=== PATIENT | male | born 1980 | race Caucasian/White ===

== ENCOUNTER 2017-04-27 07:28 | Emergency (ER) | payer BC ==
--- NOTE | 2017-04-27 08:32 | ED ---
General Adult HPI - General Chief complaint: Headache Stated complaint: Headache Time Seen by Provider: 04/27/17 08:15 Source: patient, RN notes reviewed Mode of arrival: ambulatory Limitations: no limitations - History of Present Illness Initial comments: Patient's a 37-year-old male who presents emergency room today with a chief complaint of a headache over the last 2-3 days. He does admit to a sharp type pain in the back of his head. He states he noticed it first when he was driving over the weekend. 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 Since been off and on. States he typically does not get headaches. States located in the back of his head. Denies any radiation. Currently rates it a 4/10. Does admit that he has some neck pain. States this neck feels kind of stiff when he rotates to the side. He denies any cough, cold, fever or chills. He does admit some photosensitivity. Patient denies any recent shortness of breath, chest pain, back pain, abdominal pain, nausea or vomiting, numbness or tingling, dysuria or hematuria, constipation or diarrhea, visual changes, or any other complaints. - Related Data Home Medications Medication Instructions Recorded Confirmed Buprenorphine HCl/Naloxone HCl 1 film PO DAILY 12/06/14 12/06/14 [Suboxone 8 mg-2 mg Sl Film] Dextroamphetamine/Amphetamine 25 mg PO DAILY 12/06/14 12/06/14 [Adderall Xr] Previous Rx's Medication Instructions Recorded Azithromycin [Zithromax Z-pack] 0 mg PO DIRECTED #6 tab 12/06/14 Fluticasone Propionate [Flonase] 1 spray EA NOSTRIL BID #1 pkg 12/06/14 Meclizine [Antivert] 25 mg PO TID #15 tab 12/06/14 Butalb/Acetaminophen/Caffeine 1 - 2 each PO Q4H #15 tab 04/27/17 [Fioricet 50-325-40] Allergies Allergy/AdvReac Type Severity Reaction Status Date / Time No Known Allergies Allergy Verified 04/27/17 07:32 Review of Systems ROS Statement: Those systems with pertinent positive or pertinent negative responses have been documented in the HPI. ROS Other: All systems not noted in ROS Statement are negative. Past Medical History Past Medical History: Asthma History of Any Multi-Drug Resistant Organisms: None Reported Past Surgical History: Hernia Repair, Orthopedic Surgery Additional Past Surgical History / Comment(s): wrist Past Psychological History: ADD/ADHD Smoking Status: Former smoker Past Alcohol Use History: Occasional Past Drug Use History: None Reported General Exam - General Exam Comments Initial Comments: General: The patient is awake and alert, in no distress, and does not appear acutely ill. Eye: Pupils are equal, round and reactive to light, extra-ocular movements are intact. No nystagmus. There is normal conjunctiva bilaterally. No signs of icterus. Ears, nose, mouth and throat: There are moist mucous membranes and no oral lesions. Neck: The neck is supple, there is no tenderness or JVD. Negative Kernig's and Brudzinski signs. Shows full range of motion of his neck. No tenderness over the cervical spine. Cardiovascular: There is a regular rate and rhythm. No murmur, rub or gallop is appreciated. Respiratory: Lungs are clear to auscultation, respirations are non-labored, breath sounds are equal. No wheezes, stridor, rales, or rhonchi. Gastrointestinal: Soft, non-distended, non-tender abdomen without masses or organomegaly noted. There is no rebound or guarding present. No CVA tenderness. Bowel sounds are unremarkable. Musculoskeletal: Normal ROM, no tenderness. Strength 5/5. Sensation intact. Pulses equal bilaterally 2+. Neurological: A&O x 3. CN II-XII intact, There are no obvious motor or sensory deficits. Coordination appears grossly intact. Speech is normal. Skin: Skin is warm and dry and no rashes or lesions are noted. Psychiatric: Cooperative, appropriate mood & affect, normal judgment. Limitations: no limitations Course Vital Signs 04/27/17 07:30 Temperature 98.5 F Pulse Rate 67 Respiratory 20 Rate Blood Pressure 119/76 O2 Sat by Pulse 99 Oximetry Medical Decision Making - Medical Decision Making Case discussed in detail with attending physician Dr. Chisholm. Patient reexamined at this time shows no signs of distress. His CT of the head and neck was been reviewed. Patient does admit some photosensitivity was discussed about possibility of a migraine type headache will be given prescription for Fioricet. Also admits to some neck stiffness but there is no meningismal signs. Is advised that neck pain may be causing these headaches. Advised to try Fioricet and if this does not help to continue with his ibuprofen and try heat to his neck to see if it helps with the symptoms. Advised follow-up family doctor next 2 days or return here to the emergency room symptoms increase or worsen. Disposition Clinical Impression: Acute headache Disposition: HOME SELF-CARE Condition: Good Instructions: Acute Headache (ED) Additional Instructions: Please use medication as discussed. Please follow-up with family doctor in the next 2 days of symptoms have not improved. Please return to emergency room if the symptoms increase or worsen or for any other concerns. Prescriptions: Butalb/Acetaminophen/Caffeine [Fioricet 50-325-40] 1 - 2 each PO Q4H #15 tab Referrals: Adria Noland MD [Primary Care Provider] - 1-2 days Time of Disposition: 09:32
--- NOTE | 2017-04-27 09:10 | CT ---
EXAMINATION TYPE: CT brain mahesh wo con DATE OF EXAM: 04/27/2017 COMPARISON: 12/06/2014 HISTORY: Patient complains of intractable headache and neck pain for [address] DLP: 1233.4 mGycm, Automated exposure control for dose reduction was used. CONTRAST: Patient injected with 0 mL of Omnipaque 300. CT of the brain is performed utilizing 3 mm thick sections through the posterior fossa and 3 mm thick sections through the remaining calvarium. Study is performed within 24 hours of arrival to the hospital. No abnormal hyperdensity is present to suggest an acute intracranial hemorrhage. No mass lesion is evident. No acute infarcts are evident. Ventricles and sulci are appropriate for the patient age. Paranasal sinuses and mastoid air cells within the [id number] are clear. IMPRESSIONS: 1. Normal CT brain. CT cervical spine. COMPARISON: None CT of the cervical spine is performed in the axial plane at 2 mm thick sections. Reconstructed image s in the coronal, and sagittal plane are reviewed on the computer. No acute fractures are evident. Vertebral body alignment is normal. Disc space narrowing is present posteriorly at C3-4 and to a lesser degree C4-5 C5-6 Vertebral body heights are preserved. Some endplate spurring and uncovertebral joint hypertrophy is present C3-4 with moderate right forami nal narrowing. Some uncovertebral joint hypertrophy is present C5-C6 with mild right foraminal narrow ing. IMPRESSIONS: 1. Mild uncovertebral joint hypertrophy causing some mild right foraminal stenosis discussed above C3 -4 and C5-6.
[2017-04-27 09:38] VITALS: BP 112/59; PULSE 71; RESP 16; TEMP 97.4
== END 2017-04-27 09:38 | disposition home or self-care (01) ==
LOC: EC 07:28
DX: R51 Headache (principal); M54.2 Cervicalgia; F90.9 Attention-deficit hyperactivity disorder, unspecified type; Z87.891 Personal history of nicotine dependence; Z79.899 Other long term (current) drug therapy
CPT/HCPCS: 70450; 72125; 99284

== ENCOUNTER 2017-05-10 14:13 | Emergency (ER) | payer BC ==
[2017-05-10] MEDS ORDERED: DIPH,PERTUS(ACELL)TETVAC-LF 0.5 ML VIAL IM ONE (14:50)
--- NOTE | 2017-05-10 15:17 | XR ---
Left hand HISTORY: Laceration, pain 3 views of the left hand Bone mineralization, joint spaces and alignment are maintained. No radiopaque foreign body IMPRESSION: No significant bone abnormality evident
--- NOTE | 2017-05-10 15:50 | ED ---
Wound/Laceration HPI - General Chief Complaint: Wound/Laceration Stated Complaint: finger lac Time Seen by Provider: 05/10/17 14:44 Source: patient Mode of arrival: ambulatory Limitations: no limitations - History of Present Illness Initial Comments: Patient is a right-handed 37-year-old male presenting to the emergency department with complaints of laceration to his left dorsal forearm. Onset of injury at 6 PM last night. Patient states he was cutting a piece of wood with a knife when it slipped and cut his thumb. Patient states he irrigated the wound. Today, patient went to [facility] who directed him to the emergency department for wound closure. Patient currently complains of pain rated 3 out of 10, exacerbated with movement, relieved with rest. No treatment prior to arrival. Patient denies previous injury or surgery to left upper extremity. Patient denies chills, fevers, nausea, vomiting, shortness of breath , chest pain, abdominal pain, numbness or tingling. - Related Data Previous Rx's Medication Instructions Recorded Cephalexin [Keflex] 500 mg PO Q6HR #28 cap 05/10/17 Allergies Allergy/AdvReac Type Severity Reaction Status Date / Time No Known Allergies Allergy Verified 05/10/17 14:46 Review of Systems ROS Statement: Those systems with pertinent positive or pertinent negative responses have been documented in the HPI. ROS Other: All systems not noted in ROS Statement are negative. Past Medical History Past Medical History: Asthma History of Any Multi-Drug Resistant Organisms: None Reported Past Surgical History: Hernia Repair, Orthopedic Surgery Additional Past Surgical History / Comment(s): wrist Past Psychological History: ADD/ADHD Smoking Status: Former smoker Past Alcohol Use History: Occasional Past Drug Use History: None Reported General Exam Limitations: no limitations General appearance: alert, in no apparent distress Head exam: Present: atraumatic, normocephalic, normal inspection Eye exam: Present: normal appearance ENT exam: Present: normal exam, mucous membranes moist, normal external ear exam Neck exam: Present: normal inspection, full ROM. Absent: tenderness, lymphadenopathy Respiratory exam: Present: normal lung sounds bilaterally. Absent: respiratory distress, wheezes, rales, rhonchi, stridor Cardiovascular Exam: Present: regular rate, normal rhythm, normal heart sounds. Absent: systolic murmur, diastolic murmur, rubs, gallop, clicks GI/Abdominal exam: Present: soft, normal bowel sounds. Absent: distended, tenderness Extremities exam: Present: normal inspection, full ROM, normal capillary refill. Absent: tenderness, pedal edema, joint swelling, calf tenderness Left Hand Wrist exam: Present: normal inspection, full ROM, tenderness, laceration ( 3 cm laceration to dorsal aspect of proximal left thumb) Neuro motor exam: Present: wrist extension intact, thumb opposition intact, thumb IP flexion intact, thumb adduction intact, fingers 2-5 abduction intact Neurosensory exam: Present: 2-point discrimination, radial nerve intact, ulnar nerve intact, median nerve intact Vascular: Present: vascular compromise, normal capillary refill, radial pulse, brachial pulse, ulnar pulse Back exam: Present: normal inspection, full ROM. Absent: tenderness Psychiatric exam: Present: normal affect, normal mood Skin exam: Present: warm, dry, intact, normal color Course Vital Signs 05/10/17 14:43 Temperature 97.8 F Pulse Rate 90 Respiratory 20 Rate Blood Pressure 111/65 O2 Sat by Pulse 97 Oximetry Procedures - Laceration Laceration #1 Consent Obtained: verbal consent Indication: laceration Site: hand (Left, dorsal aspect of proximal left from) Size (cm): 3 Description: linear Depth: simple, single layer Anesthetic Used: lidocaine 1% Amount (mls): 2 Pre-repair: wound explored, irrigated extensively, deep structures intact Type of Sutures: nylon Size of Sutures: 5-0 Number of Sutures: 6 Technique: simple, interrupted Patient Tolerated Procedure: well, no complications Medical Decision Making - Medical Decision Making Laceration to dorsal aspect of left proximal thumb by 3 cm. Laceration repaired. Patient tolerated well. Patient placed on antibiotics. Discharge instructions and return parameters reviewed. - Radiology Data Radiology results: report reviewed X-ray left hand: No significant bone abnormality evident Disposition Clinical Impression: Laceration Disposition: HOME SELF-CARE Condition: Good Instructions: Care For Your Stitches (ED), Laceration (ED) Additional Instructions: Postop wound care: Keep wound dry and clean for 24 hours; if dressing accidentally becomes wet, change dressing immediately. Gently clean the edges of the wound daily with a cotton swab saturated with peroxide to remove crust. Return immediately if signs of infection occur such as redness or red streaks progressing up and extremity, increasing pain, swelling, or fevers. Finish oral antibiotics as prescribed. Please return for suture removal in 7-9 days or sooner if complications. Please return to the emergency department if symptoms do not improve or get worse. Prescriptions: Cephalexin [Keflex] 500 mg PO Q6HR #28 cap Referrals: Adria Noland MD [Primary Care Provider] - 1-2 days Time of Disposition: 15:48
[2017-05-10 16:00] VITALS: BP 128/68; PULSE 87; RESP 18; TEMP 98
== END 2017-05-10 16:00 | disposition home or self-care (01) ==
LOC: EC 14:13
DX: S61.012A Laceration without foreign body of left thumb without damage to nail, initial encounter (principal); Z87.891 Personal history of nicotine dependence; W26.0XXA Contact with knife, initial encounter; Y93.89 Activity, other specified
CPT/HCPCS: 12002; 90471; 90715; 99282

== ENCOUNTER 2019-05-28 13:24 | Emergency (ER) | payer BC ==
[2019-05-28 13:39] VITALS: RESP 18
[2019-05-28] MEDS ORDERED: KETOROLAC 30 MG/ML 1 ML VIAL IM STA (14:11)
[2019-05-28] MEDS ORDERED: DIAZEPAM 5 MG/ML 2 ML INJ IM ONE (14:11)
--- NOTE | 2019-05-28 14:20 | ED ---
Back Pain HPI - General Chief Complaint: Back Pain/Injury Stated Complaint: Lower back pain Time Seen by Provider: 05/28/19 13:47 Source: patient Limitations: no limitations - History of Present Illness Initial Comments: 39-year-old male patient presents to the emergency department today for evaluation of acute low back pain. Patient states one week ago he was getting out of his bed when he had immediate onset of low back pain. Patient states the pain is across his low back extending into the upper buttocks. Patient states the pain is a sharp, stabbing, aching pain. Denies any radiation down his legs. Denies any numbness or tingling to his lower extremities. Denies any saddle anesthesia or loss of bowel or bladder control. Patient denies any known injury. Denies any history of similar symptoms. Denies any hematuria, dysuria, urinary frequency, urinary urgency. Patient states he tried taking naproxen as well as alternating ice and heat without relief. Patient states he has been taking it easy at work. He takes Suboxone for history of prescription drug addiction. Denies any history of IV drug use. Patient denies any recent rash, fever, chills, shortness breath, chest pain, abdominal pain, nausea, vomiting, diarrhea, constipation, dizziness, weakness, headache, visual changes, or any other complaints. - Related Data Previous Rx's Medication Instructions Recorded Cephalexin [Keflex] 500 mg PO Q6HR #28 cap 05/10/17 Capsaicin Cream [Trixaicin Cream] 1 applic TOPICAL QID #15 cream..g. 05/28/19 Diazepam [Valium] 5 mg PO TID PRN 3 Days #9 tab 05/28/19 Ibuprofen [Motrin] 600 mg PO Q8HR PRN #30 tab 05/28/19 Allergies Allergy/AdvReac Type Severity Reaction Status Date / Time No Known Allergies Allergy Verified 05/10/17 14:46 Review of Systems ROS Statement: Those systems with pertinent positive or pertinent negative responses have been documented in the HPI. ROS Other: All systems not noted in ROS Statement are negative. Past Medical History Past Medical History: Asthma Additional Past Medical History / Comment(s): exercise induced asthma History of Any Multi-Drug Resistant Organisms: None Reported Past Surgical History: Hernia Repair, Orthopedic Surgery Additional Past Surgical History / Comment(s): wrist Past Psychological History: ADD/ADHD Smoking Status: Former smoker Past Alcohol Use History: Occasional Past Drug Use History: Prescription Drug Abuse General Exam Limitations: no limitations General appearance: alert, in no apparent distress, other (Physical well-deve loped, well-nourished adult male patient in no acute distress. Vital signs upon presentation are temperature 97.8F, pulse 80, respirations 18, blood pressure 112/72, pulse ox 98% on room air.) Respiratory exam: Present: normal lung sounds bilaterally. Absent: respiratory distress, wheezes, rales, rhonchi, stridor Cardiovascular Exam: Present: regular rate, normal rhythm, normal heart sounds. Absent: systolic murmur, diastolic murmur, rubs, gallop, clicks GI/Abdominal exam: Present: soft, normal bowel sounds. Absent: distended, tenderness, guarding, rebound, rigid Extremities exam: Present: normal inspection, full ROM, normal capillary refill, other (Skin to the lower extremities is pink, warm, dry. Cap refills less than 3 seconds. Post tibial pulses 2+ and equal bilaterally.). Absent: tenderness, pedal edema, joint swelling, calf tenderness Back exam: Present: normal inspection. Absent: vertebral tenderness Neurological exam: Present: alert, oriented X3, CN II-XII intact Psychiatric exam: Present: normal affect, normal mood Skin exam: Present: warm, dry, intact, normal color. Absent: rash Course Vital Signs 05/28/19 05/28/19 13:34 16:07 Temperature 97.8 F 98 F Pulse Rate 80 63 Respiratory 18 18 Rate Blood Pressure 112/72 128/72 O2 Sat by Pulse 98 96 Oximetry Medical Decision Making - Medical Decision Making 39-year-old male patient presents to the emergency department today for evaluation of acute low back pain. Physical examination is unremarkable. No spinal tenderness. He is neurologically intact with no focal deficits. Good strength in the lower extremities. He has no concerning symptoms for cauda equina. X-rays of the lumbosacral spine were obtained and showed no acute abnormalities. Patient was given medication in the emergency department. He will be prescribed anti-inflammatories, muscle relaxer, Ceasing cream. He is instructed to follow-up with his primary care physician for recheck in 1-2 days. Return parameters discussed in detail. He verbalizes understanding and agrees with this plan. - Radiology Data Radiology results: report reviewed, image reviewed 5 views of the lumbar spine are obtained. Report was reviewed in its entirety. Impression by Dr. Perez shows normal five-view lumbar spine. Disposition Clinical Impression: Acute low back pain Disposition: HOME SELF-CARE Condition: Good Instructions (If sedation given, give patient instructions): Acute Low Back Pain (ED) Additional Instructions: Continue alternating ice and heat. Take medications as directed. Perform gentle range of motion exercises. Follow-up with your primary care physician for recheck and possible MRI or physical therapy referral. Return to the emergency department immediately for any new, worsening, or concerning symptoms. Prescriptions: Ibuprofen [Motrin] 600 mg PO Q8HR PRN #30 tab PRN Reason: Pain Capsaicin Cream [Trixaicin Cream] 1 applic TOPICAL QID #15 cream..g. Diazepam [Valium] 5 mg PO TID PRN 3 Days #9 tab PRN Reason: Muscle Spasm Is patient prescribed a controlled substance at d/c from ED?: No Referrals: Adria Noland MD [Primary Care Provider] - 1-2 days Time of Disposition: 15:54
--- NOTE | 2019-05-28 15:06 | XR ---
EXAMINATION TYPE: XR lumbosacral spine min 4V DATE OF EXAM: 05/28/2019 COMPARISON: None HISTORY: Pain TECHNIQUE: Five-view lumbar spine FINDINGS: There 5 lumbar-type vertebral bodies. Pedicles are intact. Disc heights are preserved. Vert ebral body heights are preserved. No spondylolytic defects are evident. Facets are normal. IMPRESSION: 1. Normal 5 view lumbar spine.
[2019-05-28 16:09] VITALS: BP 128/72; PULSE 63; TEMP 98
== END 2019-05-28 16:07 | disposition home or self-care (01) ==
LOC: EC 13:24
DX: M54.5 Low back pain (principal); Z87.891 Personal history of nicotine dependence
CPT/HCPCS: 72110; 99283; 96372 ×2; J3360; J1885

== ENCOUNTER → 2021-04-05 | Outpatient (CLI) | payer BC ==
--- NOTE | 2021-04-06 22:42 | MR ---
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 TECHNIQUE: Multiplanar, multisequence images of the brain and brainstem is performed without and with IV contras t, utilizing 8.5 mL intravenous Gadavist . FINDINGS: Diffusion weighted images demonstrate no evidence of a recent infarct or other diffusion ab normality. There is no extra-axial fluid collection or significant white matter signal abnormality. The ventricular system and cisternal spaces are normal in size and appearance. The brain volume is age appropriate. Midline structures demonstrate normal morphology. Rounded markedly T1 hyperintense signal measuring r oughly 5 to 6 mm posterior superior sellar region along the distal aspect of the pituitary stalk seen best on sagittal image 12 is of uncertain etiology seen sagittal image 12 series 201. The craniocer vical junction appears within normal limits. Post contrast images demonstrate no abnormal enhancemen t. The dural venous sinuses appear patent. There is 1.9 cm mucous retention cyst and/or polyp in the anterior inferior left maxillary sinus otherwise the visualized sinuses are otherwise clear and the g lobes are intact. Rectus muscles are symmetric and within normal limits. Suprasellar cistern is maint ained. 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
== END | disposition home or self-care (01) ==
LOC: RADMRIMAIN 17:24
PROVIDERS: ATTEND Ophthalmology
DX: G93.9 Disorder of brain, unspecified (principal)
CPT/HCPCS: 70553; A9585

== ENCOUNTER → 2021-05-24 | Outpatient (CLI) | payer BC ==
--- NOTE | 2021-05-25 03:09 | MR ---
EXAMINATION TYPE: MR angio head wo/neck wo/w con DATE OF EXAM: 05/24/2021 COMPARISON: None HISTORY: Horners syndrome, visual defect left eye, headaches. CONTRAST: Standard multiplanar, multisequence MRI departmental protocol utilizing 7.9 mL intravenous Gadavist g adolinium contrast. MR angiographic images were obtained of the intracerebral arterial circulation and the neck without a nd with IV contrast gadolinium 8 mm. FINDINGS: There is arterial flow in the anterior middle and posterior cerebral arteries. There is arterial flow in the vertebrobasilar artery system. There is no mass effect. There is no evidence of intracranial aneurysm or neovascularity. There is no evidence of hemodynamic stenosis. There is no significant siz e of the posterior communicating arteries. There is arterial flow in the common internal and external carotid arteries bilaterally. There is wid e patency of the carotid artery bifurcations. There is normal branching pattern of the great vessels on the aortic arch. There is arterial flow in both subclavian arteries. Aortic arch has normal size. There is arterial flow in both vertebral arteries. I see no evidence of hemodynamic stenosis in the n deo. There is no evidence of carotid or vertebral artery aneurysm or dissection. IMPRESSION: Negative MR angiogram of the neck. Negative MR angiogram of the brain.
--- NOTE | 2021-05-25 03:51 | MR ---
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 CONTRAST: Standard multiplanar, multisequence MRI departmental protocol utilizing 7.9 mL intravenous Gadavist g adolinium contrast. The corpus callosum appears normal. Sella turcica appears normal. The pituitary stalk is in the midli ne. Optic chiasm appears normal. There is no evidence of a sellar mass. Pituitary gland has fairly no rmal contour. There is normal enhancement of the venous sinuses. There is normal flow-void in the int ernal carotid arteries. There is no evidence of parasellar mass. I see no bony destructive process. IMPRESSION: Negative exam. Normal MR scan of the pituitary gland. There is small focus of increased signal on the T1 images on the previous exam of 04/05/2021 involving the posterior aspect of the sella turcica. Thi s is probably normal fatty marrow within the normally ossified posterior sella. This appears unchange d compared to old exam.
== END | disposition home or self-care (01) ==
LOC: RADMRIMAIN 21:24
PROVIDERS: ATTEND Ophthalmology
DX: G90.2 Horner's syndrome (principal); H57.02 Anisocoria; R51.9 Headache, unspecified
CPT/HCPCS: 70544; 70549; 70553; A9585

== ENCOUNTER → 2021-05-27 | Outpatient (CLI) | payer BC ==
--- NOTE | 2021-05-28 04:12 | MR ---
EXAMINATION TYPE: MR neck wo/w con DATE OF EXAM: 05/27/2021 COMPARISON: None HISTORY: Horners syndrome, visual defect left eye, headaches. CONTRAST: Standard multiplanar, multisequence MRI departmental protocol utilizing 8.5 mL intravenous Gadavist g adolinium contrast. Cervical spinal cord appears normal. There is no cervical paraspinal mass. There is no evidence of or bital mass. The globes are symmetric. Optic chiasm appears normal. There is 2 cm mucous retention cys t in the left maxillary sinus. The parotid glands are symmetric. Submandibular salivary glands are symmetric. I see no evidence of c ervical adenopathy. There are left side cervical anterior triangle lymph nodes that measure up to 1.4 cm in maximum length. There is no evidence of posterior fossa mass. Internal auditory canals appear normal. There is normal signal pattern of the mastoid sinuses. Thyroid gland appears normal. IMPRESSION: There are a few left side anterior triangle cervical lymph nodes of uncertain significance. Left-side d mucus retention cysts in the maxillary sinus.
== END | disposition home or self-care (01) ==
LOC: RADMRIMAIN 21:03
PROVIDERS: ATTEND Ophthalmology
DX: J34.1 Cyst and mucocele of nose and nasal sinus (principal); G90.2 Horner's syndrome
CPT/HCPCS: 70543; A9585

== ENCOUNTER → 2021-05-28 | Outpatient (CLI) | payer BC ==
--- NOTE | 2021-05-29 08:09 | CT ---
EXAMINATION TYPE: CT chest wo/w con DATE OF EXAM: 05/28/2021 COMPARISON: None HISTORY: new dx of Moose's syndrome CT DLP: 457.4 mGycm Automated exposure control for dose reduction was used. CONTRAST: CT scan of the chest is performed without and with IV Contrast, patient injected with 100 mL of Isovu e 300. FINDINGS: LUNGS: There is no evidence for infiltrate. There is a 5 mm nodule right lower lobe image 40 as well as a 3 mm nodule left lower lobe image 41. There is no pleural effusion or pneumothorax seen. The tr acheobronchial tree is patent. MEDIASTINUM: There are no greater than 1 cm hilar or mediastinal lymph nodes. No mediastinal masses are noted. No pericardial effusion is seen. Thoracic aorta is of normal caliber. The heart is not en larged. UPPER ABDOMEN: No significant abnormality appreciated. OTHER: No additional significant abnormality is seen. IMPRESSION: 1. No evidence for mediastinal or Pancoast tumor. 2. Couple of small sub-5 mm pulmonary nodules. Follow-up in one year is advised.
== END | disposition home or self-care (01) ==
LOC: RADCTMAIN 17:09
PROVIDERS: ATTEND Ophthalmology
DX: G90.2 Horner's syndrome (principal); R91.1 Solitary pulmonary nodule
CPT/HCPCS: 71270; Q9967

== ENCOUNTER → 2021-10-09 | Outpatient (CLI) | payer BC ==
--- NOTE | 2021-10-09 14:51 | US ---
EXAMINATION TYPE: US venous doppler duplex LE RT DATE OF EXAM: 10/09/2021 1:49 PM COMPARISON: NONE CLINICAL HISTORY: 41-year-old male M25.561 Pain in right knee, eval for DVT. Pain anterior medial kne e post right knee surgery for sprain anterior cruciate ligament of rt knee 07/12/2021. SIDE PERFORMED: Right TECHNIQUE: The lower extremity deep venous system is examined utilizing real time linear array sonog fernando with graded compression, doppler sonography and color-flow sonography. FINDINGS: VESSELS IMAGED: Common Femoral Vein Deep Femoral Vein Greater Saphenous Vein * Femoral Vein Popliteal Vein Small Saphenous Vein * Proximal Calf Veins (* superficial vessels) Right Leg: Negative for DVT. Complex fluid area seen at patient's knee pain anteromedial right knee = 3.0 x 3.3 x 0.6cm. IMPRESSION: 1. No evidence for DVT within the right lower extremity imaged from the groin to the upper calf. 2. Some poorly defined complex fluid spanning 3.3 cm along the anteromedial aspect of the right knee. Consider further evaluation with knee MRI as clinically indicated.
== END | disposition home or self-care (01) ==
LOC: RADUSWWP 13:47
PROVIDERS: ATTEND Orthopaedic Surgery Sports Medicine
DX: S83.511D Sprain of anterior cruciate ligament of right knee, subsequent encounter (principal); M23.611 Other spontaneous disruption of anterior cruciate ligament of right knee; M67.462 Ganglion, left knee; Z48.89 Encounter for other specified surgical aftercare; I80.9 Phlebitis and thrombophlebitis of unspecified site; X58.XXXD Exposure to other specified factors, subsequent encounter

== ENCOUNTER 2022-11-12 17:49 | Emergency (ER) | payer BC ==
[2022-11-12 17:56] VITALS: TEMP 98.2
--- NOTE | 2022-11-12 18:57 | ED ---
General Adult HPI - General Chief complaint: ENT Stated complaint: sore throat, left & right arm numbness Time Seen by Provider: 11/12/22 18:34 Source: patient Mode of arrival: ambulatory Limitations: no limitations - History of Present Illness Initial comments: Patient is a 42-year-old male presenting to the emergency room with multiple complaints ongoing for the past 4 days including body aches, fevers with a T-max of 101.22 days ago, sore throat and tenderness, paresthesia to both hands, dizziness, and generalized malaise. He reports that most of his symptoms have improved and he is not having a fever at this time he does continue to complain of sore throat with tenderness and difficulty swallowing solids. He is he is able to swallow liquids without any consultation. He has known recent exposure to possible strep throat and COVID. He is not COVID or influenza vaccinated. He denies any chest pain, shortness of breath, abdominal pain, nausea, vomiting, focal neurological deficits, weakness, current fevers or chills. Is a past medical history significant for exercise-induced asthma with no recent exacerbations. - Related Data Previous Rx's Medication Instructions Recorded Cephalexin [Keflex] 500 mg PO Q6HR #28 cap 05/10/17 Capsaicin Cream [Trixaicin Cream] 1 applic TOPICAL QID #15 cream..g. 05/28/19 Ibuprofen [Motrin] 600 mg PO Q8HR PRN #30 tab 05/28/19 diazePAM [Valium] 5 mg PO TID PRN 3 Days #9 tab 05/28/19 Penicillin V Potassium [Pen Vee K] 500 mg PO BID 10 Days #20 tablet 11/12/22 Allergies Allergy/AdvReac Type Severity Reaction Status Date / Time No Known Allergies Allergy Verified 11/12/22 17:56 Review of Systems ROS Statement: Those systems with pertinent positive or pertinent negative responses have been documented in the HPI. ROS Other: All systems not noted in ROS Statement are negative. Past Medical History Past Medical History: Asthma Additional Past Medical History / Comment(s): exercise induced asthma History of Any Multi-Drug Resistant Organisms: None Reported Past Surgical History: Hernia Repair, Orthopedic Surgery Additional Past Surgical History / Comment(s): wrist Past Psychological History: ADD/ADHD Smoking Status: Former smoker Past Alcohol Use History: Occasional Past Drug Use History: None Reported, Prescription Drug Abuse General Exam - General Exam Comments Initial Comments: GENERAL: No acute distress, well developed, well nourished. HEENT: Normocephalic, atraumatic. Pupils equal, round, reactive to light. Tonsillomegaly bilateral with tenderness. Tonsillar edema without exudate mild exudate on uvula with mild uvula enlargement airway patent. Moist mucous membranes. LUNGS: Clear to auscultation, no adventitious sounds, no use of accessory muscles. HEART: Regular rate and rhythm without murmur, rub, or gallop. ABDOMEN: Normal bowel sounds. Soft, non-tender, non-distended. DERMATOLOGIC: Skin intact, without rashes or lesions noted. EXTREMITIES: No edema. No tenderness. Moves all extremities. NEUROLOGIC: Alert & oriented x 3. CN II-XII grossly intact. PSYCHIATRIC: Normal affect and behavior. Limitations: no limitations Course Vital Signs 11/12/22 11/12/22 17:53 20:07 Temperature 98.2 F Pulse Rate 111 H 83 Respiratory 16 18 Rate Blood Pressure 151/72 118/75 O2 Sat by Pulse 98 99 Oximetry Medical Decision Making - Medical Decision Making Was pt. sent in by a medical professional or institution? @ No Did you speak to anyone other than the patient for history? @ No Did you review nursing and triage notes? @ Yes reviewed; symptoms consistent with nursing and triage note. Were old charts reviewed? @ -No Differential Diagnosis? @ -Differential Fever: Pneumonia, viral URI, endocarditis, myocarditis, pericarditis, otitis, sinusitis, peritonsillar Abscess, retropharyngeal Abscess, epiglottitis, peritonitis, appendicitis, [place] cystitis, diverticulitis, hepatitis, colitis, UTI, PID, TOA, pyelonephritis, prostatitis, epididymitis, meningitis, encephalitis, pulmonary embolism, CVA, thyroid storm, pancreatitis, adrenal crisis, cavernous sinus thrombosis, this is not meant to be an all-inclusive list. EKG interpreted by me (3pts min.)? @ -None X-rays interpreted by me (1pt min.)? @ -None CT interpreted by me (1pt min.)? @ -None U/S interpreted by me (1pt. min.)? @ -None What testing was considered but not performed? (CT, X-rays, U/S, labs)? Why? @- CBC and BMP considered but deferred due to lack of fever, significant tachycardia, hypotension and overall benign exam with the exception of tonsillar edema. What meds were considered but not given? Why? @ -Analgesics offered and declined Did you discuss the management of the patient with other professionals? @ - No Did you reconcile home meds? @ - No Was smoking cessation discussed for >3mins.? @ -Not applicable Was critical care preformed (if so, how long)? @ - No Were there social determinants of health that impacted care today? How? (Homelessness, low income, unemployed, alcoholism, drug addiction, transportation, low edu. Level, literacy, decrease access to med. care, shelter, rehab)? @ -No Was there de-escalation of care discussed even if they declined? (Discuss DNR or withdrawal of care, Hospice)? @ -No What co-morbidities impacted this encounter? (DM, HTN, Smoking, COPD, CAD, Cancer, CVA, Hep., AIDS, mental health diagnosis, sleep apnea, morbid obesity)? @ -Nonr Was patient admitted / discharged? @ -Multiple symptoms sudden onset within 48 hours with fever including cough congestion sore throat. Currently hemodynamically stable. No indication for diagnostic imaging. Will obtain swabs for viral etiology along with strep throat given tonsillar edema and exposure.. Covid influenza and RSV negative. Strep a positive. No indication for further laboratory studies. Encouraged use of ibuprofen or Tylenol as needed for pain. Encouraged rest and high fluid intake. Return parameters to the emergency room discussed. Will discharge home in stable condition on oral antibiotics for strep a pharyngitis. Undiagnosed new problem with uncertain prognosis? @ -None Drug Therapy requiring intensive monitoring for toxicity (Heparin, Nitro, Insulin, Cardizem)? @ -No Were any procedures done? @ -No Diagnosis/symptom? @ -Strep a pharyngitis Acute, or Chronic, or Acute on Chronic? @ -Acute Uncomplicated (without systemic symptoms) or Complicated (systemic symptoms)? @ -Uncomplicated Side effects of treatment? @ -None Exacerbation, Progression, or Severe Exacerbation] @ -No Poses a threat to life or bodily function? @ -No Case discussed with Dr. Brown. - Lab Data Lab Results 11/12/22 11/12/22 Range/Units 18:29 18:46 Influenza Type A (PCR) Not Detected (Not Detectd) Influenza Type B (PCR) Not Detected (Not Detectd) RSV (PCR) Not Detected (Not Detectd) SARS-CoV-2 (PCR) Not Detected (Not Detectd) Group A Strep (PCR) DETECTED A (Not Detectd) Disposition Clinical Impression: Pharyngitis due to group A beta hemolytic Streptococci Disposition: HOME SELF-CARE Condition: Stable Instructions (If sedation given, give patient instructions): Strep Throat (ED) Additional Instructions: Please complete course of antibiotic therapy as prescribed. Stay well hydrated drinking plenty of fluids. May return to work after 24 hours fever free. Please follow-up with your primary care provider. Please return to the Emergency Department if symptoms worsen or any other concerns. Prescriptions: Penicillin V Potassium [Pen Vee K] 500 mg PO BID 10 Days #20 tablet Is patient prescribed a controlled substance at d/c from ED?: No Referrals: Adria Noland MD [Primary Care Provider] - 1-2 days Time of Disposition: 19:48
[2022-11-12 20:08] VITALS: BP 118/75; PULSE 83; RESP 18
== END 2022-11-12 20:08 | disposition home or self-care (01) ==
LOC: EC 17:49
DX: J02.0 Streptococcal pharyngitis (principal); B95.0 Streptococcus, group A, as the cause of diseases classified elsewhere; J45.909 Unspecified asthma, uncomplicated; Z87.891 Personal history of nicotine dependence; Z20.822 Contact with and (suspected) exposure to COVID-19
CPT/HCPCS: 87636; 87651; 99284

== ENCOUNTER 2025-05-04 18:52 | Emergency (ER) | payer BC, OTHER ==
[2025-05-04 19:00] VITALS: RESP 18
--- NOTE | 2025-05-04 19:12 | ED ---
General Adult HPI - General Chief complaint: Recheck/Abnormal Lab/Rx Stated complaint: inhaled wire insulation Time Seen by Provider: 05/04/25 19:02 Source: patient, RN notes reviewed Mode of arrival: ambulatory Limitations: no limitations - History of Present Illness Initial comments: Patient is a 45-year-old male present to the emergency department with concern for inhalation. Patient was stripping a wire when it broke off and he accidentally inhaled it. Patient did vomit 3 times. Patient saw no evidence of this in the emesis. Patient believes this was approximately half of the plastic covering of the wire, less than 1 inch. No dyspnea. - Related Data Previous Rx's Medication Instructions Recorded Cephalexin [Keflex] 500 mg PO Q6HR #28 cap 05/10/17 Capsaicin Cream [Trixaicin Cream] 1 applic TOPICAL QID #15 cream..g. 05/28/19 Ibuprofen [Motrin] 600 mg PO Q8HR PRN #30 tab 05/28/19 diazePAM [Valium] 5 mg PO TID PRN 3 Days #9 tab 05/28/19 Penicillin V Potassium [Pen Vee K] 500 mg PO BID 10 Days #20 tablet 11/12/22 Allergies Allergy/AdvReac Type Severity Reaction Status Date / Time No Known Allergies Allergy Verified 05/04/25 19:00 Review of Systems ROS Statement: Those systems with pertinent positive or pertinent negative responses have been documented in the HPI. ROS Other: All systems not noted in ROS Statement are negative. Constitutional: Denies: fever Eyes: Denies: eye pain ENT: Denies: ear pain Respiratory: Reports: as per HPI Cardiovascular: Denies: chest pain Endocrine: Denies: fatigue Gastrointestinal: Denies: abdominal pain Past Medical History Past Medical History: Asthma Additional Past Medical History / Comment(s): exercise induced asthma History of Any Multi-Drug Resistant Organisms: None Reported Past Surgical History: Hernia Repair, Orthopedic Surgery Additional Past Surgical History / Comment(s): wrist Past Psychological History: ADD/ADHD Smoking Status: Former smoker Past Alcohol Use History: Occasional Past Drug Use History: None Reported, Prescription Drug Abuse General Exam Limitations: no limitations General appearance: alert, in no apparent distress Eye exam: Present: normal appearance ENT exam: Present: normal oropharynx Neck exam: Present: normal inspection Respiratory exam: Present: normal lung sounds bilaterally Cardiovascular Exam: Present: regular rate, normal rhythm Extremities exam: Present: normal inspection Neurological exam: Present: alert Psychiatric exam: Present: normal affect, normal mood Skin exam: Present: normal color Course Vital Signs 05/04/25 18:58 Temperature 97.5 F L Pulse Rate 100 Respiratory 18 Rate Blood Pressure 144/74 O2 Sat by Pulse 98 Oximetry Medical Decision Making - Medical Decision Making Was pt. sent in by a medical professional or institution (, PA, BIOSECURITY OFFICER, urgent care, hospital, or fpc...) When possible be specific @ -Patient sent from work Did you speak to anyone other than the patient for history (EMS, parent, family, police, friend...)? What history was obtained from this source @ -No Did you review nursing and triage notes (agree or disagree)? Why? @ -I reviewed and agree with nursing and triage notes Were old charts reviewed (outside hosp., previous admission, EMS record, old EKG, old radiological studies, urgent care reports/EKG's, fpc records)? Report findings @ -No old charts were reviewed Differential Diagnosis (chest pain, altered mental status, abdominal pain women, abdominal pain men, vaginal bleeding, weakness, fever, dyspnea, syncope, headache, dizziness, GI bleed, back pain, seizure, CVA, palpatations, mental health, musculoskeletal)? @ -Differential Dyspnea: Coronary syndrome, arrhythmia, tamponade, asthma, COPD, pulmonary embolism, pneumonia, pneumothorax, pulmonary effusion, anaphylaxis, diabetic ketoacidosis, flailed chest, pulmonary contusion, diaphragmatic rupture, anemia, neuromuscular, this is not meant to be an all-inclusive list. EKG interpreted by me (3pts min.). @ -As above X-rays interpreted by me (1pt min.). @ -Chest x-ray shows no acute process CT interpreted by me (1pt min.). @ -None done U/S interpreted by me (1pt. min.). @ -None done What testing was considered but not performed or refused? (CT, X-rays, U/S, labs)? Why? @ -None What meds were considered but not given or refused? Why? @ -None Did you discuss the management of the patient with other professionals (professionals i.e. , BENY, BIOSECURITY OFFICER, lab, RT, psych nurse, social service coordinator, fiberglass luggage molder, teacher, humane officer, case resolution specialist)? Give summary @ -No Was smoking cessation discussed for >3mins.? @ -No Was critical care preformed (if so, how long)? @ -No Were there social determinants of health that impacted care today? How? (Homelessness, low income, unemployed, alcoholism, drug addiction, transportation, low edu. Level, literacy, decrease access to med. care, correction, rehab)? @ -No Was there de-escalation of care discussed even if they declined (Discuss DNR or withdrawal of care, Hospice)? DNR status @ -No What co-morbidities impacted this encounter? (DM, HTN, Smoking, COPD, CAD, Cancer, CVA, ARF, Chemo, Hep., AIDS, mental health diagnosis, sleep apnea, morbid obesity)? @ -None Was patient admitted / discharged? Hospital course, mention meds given and route, prescriptions, significant lab abnormalities, going to OR and other pertinent info. @ -Patient presents with concern for aspiration of plastic insulation from a wire. On reevaluation patient is already feeling better. Chest x-ray unremarkable. Patient will be discharged with follow-up pulmonary. Patient informed need to return for dyspnea or pneumonialike symptoms Undiagnosed new problem with uncertain prognosis? @ -No Drug Therapy requiring intensive monitoring for toxicity (Heparin, Nitro, Insulin, Cardizem)? @ -No Were any procedures done? @ -No Diagnosis/symptom? @ -Aspiration Acute, or Chronic, or Acute on Chronic? @ -Acute Uncomplicated (without systemic symptoms) or Complicated (systemic symptoms)? @ -Default Side effects of treatment? @ -No Exacerbation, Progression, or Severe Exacerbation? @ -No Poses a threat to life or bodily function? How? (Chest pain, [place], DC, pneumonia, PE, COPD, DKA, ARF, appy, cholecystitis, CVA, Diverticulitis, Homicidal, Suicidal, threat to staff... and all critical care pts) @ -No Disposition Clinical Impression: Aspiration into respiratory tract Disposition: HOME SELF-CARE Condition: Stable Instructions (If sedation given, give patient instructions): Aspiration Precautions (ED) Additional Instructions: Please do follow-up with primary care physician or industrial health services. Please follow-up with pulmonary, numbers provided. Return for difficulty breathing, uncontrolled cough, wheezing, fever, worsening symptoms or other concerns. Is patient prescribed a controlled substance at d/c from ED?: No Referrals: Adria Noland MD [Primary Care Provider] - 1-2 days Danny Dixon DO [Doctor of Osteopathic Medicine] - 1-2 days Time of Disposition: 20:05
--- NOTE | 2025-05-04 19:51 | XR ---
EXAMINATION TYPE: XR chest 2V DATE OF EXAM: 05/04/2025 7:43 PM COMPARISON: CT chest 05/28/2021 TECHNIQUE: XR chest 2V Frontal and lateral views of the chest. CLINICAL INDICATION:Male, 45 years old with history of aspiration; FINDINGS: Lungs/Pleura: There is no evidence of pleural effusion, focal consolidation, or pneumothorax. Pulmonary vascularity: Unremarkable. Heart/mediastinum: Cardiomediastinal silhouette is unremarkable. Musculoskeletal: No acute osseous pathology. IMPRESSION: No acute cardiopulmonary disease/process. [facility], , 05/04/2025 7:49 PM
[2025-05-04 20:09] VITALS: BP 129/86; PULSE 91; TEMP 98.7
== END 2025-05-04 20:09 | disposition home or self-care (01) ==
LOC: EC 18:52
DX: T17.900A Unspecified foreign body in respiratory tract, part unspecified causing asphyxiation, initial encounter (principal); Z87.891 Personal history of nicotine dependence
CPT/HCPCS: 71046; 99283